=== PATIENT | female | born 1950 ===

== ENCOUNTER → 2018-12-10 | Outpatient (CLI) | payer OTHER ==
[~2018-12-10] VITALS: Ht 167.6 cm; Wt 71.7 kg
[~2018-12-10] MED LIST: ATENOLOL 100MG100 MG PO; BIOTIN1 MG PO; CALCIUM CITRAT1 EAC7 PO; COLLAGEN HYDROLY1 GM PO; COQ-10100 MG PO; FOLIC ACID1 MG PO; GLUCOSAMINE HC500 MG PO; LIVALO2 MG PO; NIACIN 100MG T100 M1 PO; SYNTHROID75 MCG PO; TERAZOSIN HCL5 MG PO; TUMERSAID TABL1 EACH PO; VITAMIN B122500 MCG PO; VITAMIN E400 UNIT PO
[2018-12-10 12:48] VITALS: BP 184/94
--- NOTE | 2018-12-10 12:52 | NUR ---
Pain Clinic Assessment: 1. History of Osteoarthritis: History of Rheumatoid Arthritis: 2. Height: 5 ft. 6 in. 167.6 cm. Weight: 158.0 lb. oz. 71.668 kg. Patient's BMI: 25.5 3. Vital Signs: BP: 184/94 Pulse: 65 Resp: 16 Temp: 02 Sat: 97 ECG Mon: 4. Pain Intensity: 4-5 5. Fall Risk: Dizziness: N Needs help standing or walking: N Fallen in the last 3 months: N Fall risk comments: 6. Patient on Blood Thinner: None 7. History of Hypertension: Y 8. Opioid Therapy greater than 6 weeks: N Opiate Contract Signed: 9. Risk Assessment Tool Provided: LOW 10. Functional Assessment Tool: 11. Recreational Drug Use: Never Drug Type: Tobacco Use: Never Smoker Tobacco Type: Amount or Packs/day: How Many Years: Alcohol Use: Yes Frequency: Weekly Quant: 2-3
== END ==
LOC: PAIN 06:56
DX: M54.5 Low back pain (principal); M79.604 Pain in right leg; I10 Essential (primary) hypertension; Z72.89 Other problems related to lifestyle; Z79.891 Long term (current) use of opiate analgesic

== ENCOUNTER → 2019-01-03 | Outpatient (CLI) | payer OTHER ==
[~2019-01-03] VITALS: Ht 167.6 cm; Wt 69.9 kg
[2019-01-03 11:18] VITALS: BP 189/93
--- NOTE | 2019-01-03 11:25 | NUR ---
Pain Clinic Assessment: 1. History of Osteoarthritis: SPINE History of Rheumatoid Arthritis: NO 2. Height: 5 ft. 6 in. 167.6 cm. Weight: 154.0 lb. oz. 69.854 kg. Patient's BMI: 24.9 3. Vital Signs: BP: 189/93 Pulse: 61 Resp: 15 Temp: 02 Sat: 95 ECG Mon: 4. Pain Intensity: 2-3 5. Fall Risk: Dizziness: N Needs help standing or walking: N Fallen in the last 3 months: N Fall risk comments: 6. Patient on Blood Thinner: None 7. History of Hypertension: Y 8. Opioid Therapy greater than 6 weeks: N Opiate Contract Signed: 9. Risk Assessment Tool Provided: LOW 10. Functional Assessment Tool: 11. Recreational Drug Use: Never Drug Type: Tobacco Use: Never Smoker Tobacco Type: Amount or Packs/day: How Many Years: Alcohol Use: Yes Frequency: Weekly Quant: 2 DRINKS ON MONDAY
--- NOTE | 2019-01-07 18:13 | HPC ---
[facility] [address] [place] [address] PAIN MANAGEMENT CONSULTATION Name: NEIL LOZANO Room #: REG ASIA Brendan.#: [id number] Admission: 01/03/19 ������������������ Attend Phys: Johnny Gayle MD Discharge: ������������������ Date of : 54 Report #: [id number] THIS REPORT FOR: //name// CC: Yogesh Gayle DATE OF SERVICE: 01/03/2019 Followup visit for lumbar radiculopathy. The patient returns to the pain clinic today for an epidural injection. She was seen initially in consultation on 12/10/2018. At that time, she was not prepared to go forward with an epidural injection, although her pain continued to be fairly significant and nagging with some right lumbar radicular pain and noted consistent with the extruded disk fragments seen at L2-L3. Today, she would like to go forward with the epidural injection. I spent a good deal of time with her describing the procedure, risks and benefits to allay some of her anxiety. She scores her pain as a 2-3/10 at this time, but after planting k[place] or being in her garden, the pain can be as high as a 7-8/10. Most of the pain is worsened by bending and stooping. She is able to walk up to 1 hour with minimal discomfort. PHYSICAL EXAMINATION: She is 5 feet 6 inches, 154 pounds, BMI is 24.9. Blood pressure 189/93, heart rate 61, respirations 15. She moves independently from sitting to standing position, ambulates without too much difficulty. She has some slight restrictions in flexion and extension of the lumbar spine. Straight leg raising on the right reproduces pain in an L3-L4 distribution. Sensation and strength are normal in lower extremities. Deep tendon reflexes are 1+ bilaterally at knees and ankles. MRI once again shows an extruded disk fragment extending in a caudad direction placing a mass effect on the right ventral thecal sac. This irritates the right L3 nerve root. There is additional ligamentum flavum hypertrophy resulting in mild relative canal stenosis of the AP diameter. There is no significant foraminal stenosis. IMPRESSION: Lumbar radiculopathy, this involves both the right L3 dermatome as well as clinically the L4 dermatomal distribution. RECOMMENDATION: Epidural steroid injection under fluoroscopic guidance. PROCEDURE: After informed consent, she was taken to the fluoroscopic suite, placed prone, skin prepped with ChloraPrep. Skin anesthetized over the L3-L4 interspace. A 20-gauge Tuohy epidural needle advanced in the epidural space [address] [address] PAIN MANAGEMENT CONSULTATION Name: BLAKENEIL Room #: [facility].#: [id number] Admission: 01/03/19 ������������������ Attend Phys: Johnny Gayle MD Discharge: ������������������ Date of : 54 Report #: [id number] with loss of resistance technique. There was no blood or CSF aspirated. A 1 mL of Omnipaque injected. Good spread of dye observed in the epidural space followed by 3 mL of 0.5% lidocaine mixed with 80 mg of triamcinolone. She tolerated the procedure well. She was observed for 45 minutes and discharged with a pain score of 0. Follow up as needed. ��������������������������������������������� <ELECTRONICALLY SIGNED> ���������������������������������������� By: Johnny Gayle MD ��������������������������������������������� 01/07/19 1813 [id number] Johnny Gayle MD /nt
== END | disposition home or self-care (01) ==
LOC: PAIN 06:45
DX: M54.16 Radiculopathy, lumbar region (principal); G89.29 Other chronic pain; Z88.8 Allergy status to other drugs, medicaments and biological substances; Z79.899 Other long term (current) drug therapy